=== PATIENT | female | born 1960 | race Hispanic/Latino ===

== ENCOUNTER → 2018-08-24 | Outpatient (CLI) | payer OTHER, MEDICAID ==
[2018-08-24 12:34] LABS: HEMATOCRIT 39.2 % (36.0-47.0); HEMOGLOBIN 13.1 g/dl (12.0-15.5); MEAN CORPUSCULAR HEMOGLOBIN 32.3 pg (27.0-33.0); MEAN CORPUSCULAR HGB CONC 33.4 g/dl (32.0-36.5); MEAN CORPUSCULAR VOLUME 96.8 fl (80.0-96.0); PLATELET COUNT, AUTOMATED 458 10^3/uL (150-450); RED BLOOD COUNT 4.05 10^6/uL (4.00-5.40); WHITE BLOOD COUNT 5.9 10^3/uL (4.0-10.0)
[2018-08-24 13:04] LABS: ALBUMIN 3.7 GM/DL (3.2-5.2); ALBUMIN/GLOBULIN RATIO 1.03 (1.00-1.93); ALKALINE PHOSPHATASE 151 U/L (45-117); ALT/SGPT 69 U/L (12-78); ANION GAP 5 MEQ/L (8-16); AST/SGOT 42 U/L (7-37); BILIRUBIN,TOTAL 0.3 MG/DL (0.2-1.0); BLOOD UREA NITROGEN 14 MG/DL (7-18); CALCIUM LEVEL 9.2 MG/DL (8.5-10.1); CARBON DIOXIDE LEVEL 29 MEQ/L (21-32); CHLORIDE LEVEL 104 MEQ/L (98-107); CHOLESTEROL LEVEL 194 MG/DL (<200); CHOLESTEROL RISK RATIO 3.129 (<5); CREATININE FOR GFR 0.54 MG/DL (0.55-1.30); GLOMERULAR FILTRATION RATE > 60.0 (>51); GLUCOSE, FASTING 88 MG/DL (70-100); HDL CHOLESTEROL 62 MG/DL (>40); LDL CHOLESTEROL 112 MG/DL (<100); NON-HDL-C 132 MG/DL; POTASSIUM SERUM 4.4 MEQ/L (3.5-5.1); SODIUM LEVEL 138 MEQ/L (136-145); TOTAL PROTEIN 7.3 GM/DL (6.4-8.2); TRIGLYCERIDES LEVEL 102 MG/DL (<150)
[2018-08-26 10:28] LABS: TOTAL 25(OH) VITAMIN D 59.1 NG/ML (30.0-100.0)
== END ==
LOC: M LAB 11:18
DX: J44.9 Chronic obstructive pulmonary disease, unspecified (principal); R53.83 Other fatigue; M54.30 Sciatica, unspecified side; E55.9 Vitamin D deficiency, unspecified; I45.10 Unspecified right bundle-branch block; Z87.81 Personal history of (healed) traumatic fracture
CPT/HCPCS: 71046

== ENCOUNTER → 2019-11-10 | Outpatient (CLI) | payer OTHER ==
[2019-11-10 10:47] LABS: HEMOGLOBIN 13.9 g/dl (12.0-15.5); MEAN CORPUSCULAR HEMOGLOBIN 31.7 pg (27.0-33.0); MEAN CORPUSCULAR HGB CONC 32.3 g/dl (32.0-36.5); MEAN CORPUSCULAR VOLUME 97.9 fl (80.0-96.0); PLATELET COUNT, AUTOMATED 353 10^3/uL (150-450); RED BLOOD COUNT 4.39 10^6/uL (4.00-5.40); WHITE BLOOD COUNT 6.4 10^3/uL (4.0-10.0)
[2019-11-10 11:05] LABS: ERYTHROCYTE SEDIMENTATION RATE 14 mm/hr (0-30)
[2019-11-10 11:10] LABS: HEMOGLOBIN A1c 5.6 %
[2019-11-10 11:22] LABS: ALT/SGPT 28 U/L (12-78); BILIRUBIN,TOTAL 0.5 MG/DL (0.2-1.0); BLOOD UREA NITROGEN 12 MG/DL (7-18); CALCIUM LEVEL 9.5 MG/DL (8.5-10.1); CARBON DIOXIDE LEVEL 28 MEQ/L (21-32); CHLORIDE LEVEL 109 MEQ/L (98-107); CHOLESTEROL LEVEL 180 MG/DL (<200); CHOLESTEROL RISK RATIO 3.333 (<5); CREATININE FOR GFR 0.51 MG/DL (0.55-1.30); GLOMERULAR FILTRATION RATE > 60.0 (>51); GLUCOSE, FASTING 81 MG/DL (70-100); HDL CHOLESTEROL 54 MG/DL (>40); LDL CHOLESTEROL 110 MG/DL (<100); NON-HDL-C 126 MG/DL; POTASSIUM SERUM 3.8 MEQ/L (3.5-5.1); RHEUMATOID FACTOR QUANT < 10.0 IU/ML (<15.0); SODIUM LEVEL 143 MEQ/L (136-145); TRIGLYCERIDES LEVEL 81 MG/DL (<150); URIC ACID 2.7 MG/DL (2.6-6.0)
--- NOTE | 2019-11-10 11:43 | REP ---
Clinical: Cervical Technique: AP, lateral, flexion/extension, bilateral oblique, and open mouth views of the cervical spine. Findings: Moderate to advanced multilevel degenerative disc osteophyte complex are appreciated with elements of hypertrophic facet change. Narrowing to the right neural foramen at C4-5 and C5-6 suggested as well. No acute fracture / compression injury or subluxation. Open mouth view demonstrates normal C1-C2 articulation and odontoid process. Impression: Moderate to advanced multilevel degenerative spondylosis. Electronically Signed by Manohar Griffith MD 11/10/2019 11:35 A
--- NOTE | 2019-11-10 11:48 | REP ---
Clinical: COPD. Chest pain. Technique: PA and lateral. Comparison: 08/24/2018. Findings: Mediastinum and cardiac silhouette are normal. Healed bilateral rib fractures noted. No consolidation, effusion, or pneumothorax. Impression: No acute cardiopulmonary process. Electronically Signed by Manohar Griffith MD 11/10/2019 11:40 A
--- NOTE | 2019-11-10 11:49 | REP ---
Clinical: Pain. Technique: AP, lateral, bilateral oblique views of the right ankle. Findings: Osseous structures, joint spaces, and surrounding soft tissues are relatively normal for age. No acute fracture dislocation. No arthritic changes. Impression: Age-appropriate right ankle radiographs. Electronically Signed by Manohar Griffith MD 11/10/2019 11:41 A
--- NOTE | 2019-11-10 11:50 | REP ---
Clinical: Back pain. Technique: AP, lateral, bilateral oblique and coned-down views of the lumbosacral spine. Findings: Alignment and lordosis maintained. Vertebral bodies are intact. No acute fracture / compression injury or subluxation. Significant degenerative changes are appreciated. Disc spaces are relatively normal. Impression: Normal age appropriate lumbosacral spine radiographs. Electronically Signed by Manohar Griffith MD 11/10/2019 11:41 A
--- NOTE | 2019-11-10 11:53 | REP ---
Clinical: Knee pain. Technique: AP, lateral, bilateral oblique and sunrise views of the right and left knee. Findings: Osseous structures, joint spaces, and surrounding soft tissues are essentially symmetric and age appropriate. No evidence for acute or healed injury. No overt arthritic changes. No effusion. Impression: Age-appropriate bilateral knee radiograph series. Electronically Signed by Manohar Griffith MD 11/10/2019 11:44 A
--- NOTE | 2019-11-10 12:15 | ECGEPIP ---
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
[2019-11-10 12:39] LABS: TOTAL 25(OH) VITAMIN D 54.6 NG/ML (30.0-100.0)
== END ==
LOC: M LAB 10:17
PROVIDERS: ATTEND Family Medicine
DX: D64.9 Anemia, unspecified (principal)

== ENCOUNTER → 2021-05-18 | Outpatient (CLI) | payer OTHER ==
--- NOTE | 2021-05-18 09:52 | REP ---
INDICATION: HTN- LABS AND EKG FIRST COMPARISON: 11/10/2019 TECHNIQUE: PA and lateral. FINDINGS: The mediastinum and cardiac silhouette are normal/stable. The lung adan demonstrate stable chronic changes without acute consolidation, effusion, or pneumothorax. Old healed bilateral rib fractures and right clavicle fracture again noted. IMPRESSION: No acute cardiopulmonary process. <Electronically signed by Manohar Griffith > 05/18/21 [id number]
[2021-05-18 10:37] LABS: HEMATOCRIT 41.2 % (36.0-47.0); HEMOGLOBIN 13.4 g/dl (12.0-15.5); MEAN CORPUSCULAR HEMOGLOBIN 32.4 pg (27.0-33.0); MEAN CORPUSCULAR HGB CONC 32.5 g/dl (32.0-36.5); MEAN CORPUSCULAR VOLUME 99.8 fl (80.0-96.0); PLATELET COUNT, AUTOMATED 418 10^3/uL (150-450); RED BLOOD COUNT 4.13 10^6/uL (4.00-5.40); WHITE BLOOD COUNT 4.8 10^3/uL (4.0-10.0)
[2021-05-18 11:12] LABS: ALBUMIN 3.6 GM/DL (3.2-5.2); ALT/SGPT 101 U/L (12-78); BILIRUBIN,TOTAL 0.4 MG/DL (0.2-1.0); BLOOD UREA NITROGEN 13 MG/DL (7-18); CALCIUM LEVEL 8.8 MG/DL (8.8-10.2); CARBON DIOXIDE LEVEL 30 MEQ/L (21-32); CHLORIDE LEVEL 105 MEQ/L (98-107); CHOLESTEROL LEVEL 200 MG/DL (<200); CHOLESTEROL RISK RATIO 2.941 (<5); CREATININE FOR GFR 0.43 MG/DL (0.55-1.30); GLOMERULAR FILTRATION RATE > 60.0 (>45); GLUCOSE, FASTING 65 MG/DL (70-100); HDL CHOLESTEROL 68 MG/DL (>40); IRON (FE) 108 UG/DL (50-170); LDL CHOLESTEROL 118 MG/DL (<100); NON-HDL-C 132 MG/DL; PERCENT SATURATION 29.6 % (13.2-45.0); POTASSIUM SERUM 4.3 MEQ/L (3.5-5.1); SODIUM LEVEL 139 MEQ/L (136-145); TOTAL IRON BINDING CAPACITY 365 UG/DL (250-450); TOTAL PROTEIN 7.1 GM/DL (6.4-8.2); TRIGLYCERIDES LEVEL 71 MG/DL (<150); VITAMIN B12 LEVEL 818 PG/ML (247-911)
[2021-05-18 11:52] LABS: HEMOGLOBIN A1c 5.3 %
--- NOTE | 2021-05-18 23:43 | ECGEPIP ---
[facility] Test Date: 2021-05-18 Pat Name: TAYLOR LYNN Department: Room: - Gender: Female Service Parts Coordinator: DAGMAR : 1960 Requested By: Mellisa Gavin Order Number: [id number] Reading MD: Deny Page Measurements Intervals [place] Rate: 60 P: 71 MS: 158 QRS: 254 QRSD: 88 T: 65 QT: 392 QTc: 392 Interpretive Statements Normal sinus rhythm Right superior axis deviation Cannot rule out Septal infarct , age undetermined No significant change compared with 11/10/2019. Electronically Signed on 05-18-2021 23:43:31 EDT by Deny Page
== END ==
LOC: M LAB 09:08
PROVIDERS: ATTEND Family Medicine
DX: I10 Essential (primary) hypertension (principal)

== ENCOUNTER → 2023-01-31 | Outpatient (CLI) | payer OTHER ==
[2023-01-31 10:53] LABS: HEMATOCRIT 43.1 % (36.0-47.0); HEMOGLOBIN 14.2 g/dl (12.0-15.5); MEAN CORPUSCULAR HEMOGLOBIN 32.9 pg (27.0-33.0); MEAN CORPUSCULAR HGB CONC 32.9 g/dl (32.0-36.5); PLATELET COUNT, AUTOMATED 374 10^3/uL (150-450); RED BLOOD COUNT 4.31 10^6/uL (4.00-5.40); WHITE BLOOD COUNT 7.2 10^3/uL (4.0-10.0)
[2023-01-31 11:26] LABS: TOTAL 25(OH) VITAMIN D 55.5 NG/ML (20.0-100.0)
[2023-01-31 11:27] LABS: ALKALINE PHOSPHATASE 122 U/L (46-116); ALT/SGPT 33 U/L (7.0-40); AST/SGOT 33 U/L (<34); BILIRUBIN,TOTAL 0.6 MG/DL (0.3-1.2); BLOOD UREA NITROGEN 13 MG/DL (9-23); CALCIUM LEVEL 9.5 MG/DL (8.3-10.6); CARBON DIOXIDE LEVEL 25 MMOL/L (20-31); CHLORIDE LEVEL 106 MMOL/L (98-107); CHOLESTEROL LEVEL 175 MG/DL (<200); CHOLESTEROL RISK RATIO 2.92 (<5); CREATININE FOR GFR 0.47 MG/DL (0.55-1.30); GLOMERULAR FILTRATION RATE > 60.0 (>45); GLUCOSE, FASTING 68 MG/DL (74-106); HDL CHOLESTEROL 59.9 MG/DL (>40); LDL CHOLESTEROL 100.1 MG/DL (<100); NON-HDL-C 115.1 MG/DL; SODIUM LEVEL 140 MMOL/L (136-145); TOTAL PROTEIN 7.1 G/DL (5.7-8.2); TRIGLYCERIDES LEVEL 75 MG/DL (<150)
[2023-01-31 11:31] LABS: HEMOGLOBIN A1c 4.8 % (4.0-6.0)
== END ==
LOC: M EKG 09:52
PROVIDERS: ATTEND Family Medicine
DX: D64.9 Anemia, unspecified (principal)